=== PATIENT | male | born 1945 | race Caucasian/White ===

== ENCOUNTER 2019-03-05 14:24 | Emergency (ER) | payer MEDICARE, OTHER ==
--- NOTE | 2019-03-05 15:51 | EDM.PDOC ---
ED HPI GENERAL MEDICAL PROBLEM - General Chief Complaint: Upper Extremity Injury/Pain Stated Complaint: FALL/RIGHT ARM PAIN Time Seen by Provider: 03/05/19 15:21 Source of Information: Reports: Patient History Limitations: Reports: No Limitations - History of Present Illness INITIAL COMMENTS - FREE TEXT/NARRATIVE: HISTORY AND PHYSICAL: History of present illness: Patient is a 73-year-old male who presents to the emergency room today with complaints of right shoulder pain after falling from standing height. He denies hitting his head or having any loss of consciousness. Patient has localized pain right at the shoulder joint. Offers no other extremity complaints. He denies any numbness, tingling or saddle paresthesias. Patient is ambulatory without difficulty. Patient denies any fever, chills, headache, change in vision , syncope or near syncope. Denies any chest pain, back pain, shortness of breath or cough. Denies any abdominal pain, nausea, vomiting, diarrhea, constipation or dysuria. Has not noted any blood in urine or stool. Patient has been eating and drinking appropriately. Review of systems: As per history of present illness and below otherwise all systems reviewed and negative. Past medical history: As per history of present illness and as reviewed below otherwise noncontributory. Surgical history: As per history of present illness and as reviewed below otherwise noncontributory. Social history: See social history for further information Family history: As per history of present illness and as reviewed below otherwise noncontributory. Physical exam: General: Well-developed and well-nourished 73-year-old male. Alert and oriented. Nontoxic appearing and in no acute distress. HEENT: Atraumatic, normocephalic, pupils equal and reactive bilaterally, negative for conjunctival pallor or scleral icterus, mucous membranes moist, trachea midline. No drooling or trismus noted. No meningeal signs. No hot potato voice noted. Lungs: Clear to auscultation, breath sounds equal bilaterally, chest nontender. Heart: S1S2, regular rate and rhythm without overt murmur Abdomen: Soft, nondistended, nontender. Negative for masses. Negative for costovertebral tenderness. Pelvis: Stable nontender. Skin: Intact, warm, dry. No lesions or rashes noted. Extremities: Pain with limited ROM of right shoulder, otherwise moves all other extremities per self without difficulty or deficits, strong radial pulses bilaterally. Cap refill less than 3 seconds. Able to grasp tightly. Neurovascular unremarkable. Neuro: Awake, alert, oriented. Cranial nerves II through XII unremarkable. Cerebellum unremarkable. Motor and sensory unremarkable throughout. Exam nonfocal. Notes: X-ray shows a comminuted humeral head fracture as well as a fracture through the surgical neck. Degenerative changes are noted. Sling was applied with education. 1540: Dr Roth, orthopedics on-call, was consulted on this case. He states that he will see this patient tomorrow in clinic and to place the patient in a sling and provide pain medication. This information was shared with the patient. Supportive care measures were reviewed and discussed. Voices understanding and is agreeable to plan of care. Denies any further questions or concerns at this time. Diagnostics: Right shoulder x-ray Therapeutics: Sling Prescription: [place] (#20) Impression: Shoulder fracture, right Plan: 1. Rest, ice, elevate the affected extremity. Please wear the splint as directed. 2. Tylenol and/or Ibuprofen as needed for pain management. [place] for moderate to severe pain. 3. Follow up with the Orthopedic provider tomorrow at the building at 0830. Return to the ED as needed and as discussed. Definitive disposition and diagnosis as appropriate pending reevaluation and review of above. right shoulder area Pain Score (Numeric/FACES): 6 - Related Data Allergies Allergy/AdvReac Type Severity Reaction Status Date / Time No Known Allergies Allergy Verified 03/05/19 15:02 Home Meds: Home Meds Acetaminophen/HYDROcodone [[place] 325-5 MG] 1 dose PO Q4H #20 tablet 03/05/19 [Rx ] Allopurinol [Zyloprim] 300 mg PO DAILY 03/05/19 [History] Aspirin 81 mg PO DAILY 03/05/19 [History] Lisinopril 1 tab PO DAILY PRN 03/05/19 [History] Sotalol HCl [Sotalol] 60 mg PO BID 03/05/19 [History] atorvaSTATin [Lipitor] 20 mg PO DAILY 03/05/19 [History] Past Medical History Cardiovascular History: Reports: High Cholesterol, Hypertension, [place] Musculoskeletal History: Reports: Gout - Past Surgical History Cardiovascular Surgical History: Reports: Coronary Artery Stent Musculoskeletal Surgical History: Reports: Arthroscopic Knee Social & Family History - Family History Family Medical History: Noncontributory - Tobacco Use Smoking Status *Q: Never Smoker - Recreational Drug Use Recreational Drug Use: No Review of Systems - Review of Systems Review Of Systems: Comprehensive ROS is negative, except as noted in HPI. ED EXAM, GENERAL - Physical Exam Exam: See Below (See dictation) Course - Vital Signs Last Recorded V/S: Last Vital Signs Temp 96.1 F 03/05/19 14:59 Pulse 58 L 03/05/19 14:59 Resp 20 03/05/19 14:59 BP 200/98 H 03/05/19 14:59 Pulse Ox 95 03/05/19 14:59 - Orders/Labs/Meds Meds: Medications Discontinued Medications Generic Name Dose Route Start Last Admin Trade Name Freq PRN Reason Stop Dose Admin Hydrocodone Bitart/Acetaminophen 1 tab 03/05/19 15:57 03/05/19 16:19 [place] 325-5 Mg PO 03/05/19 15:58 1 tab ONETIME ONE Administration Departure - Departure Time of Disposition: 15:56 Disposition: Home, Self-Care 01 Clinical Impression: Shoulder fracture, right Qualifiers: Encounter type: initial encounter Fracture type: closed Qualified Code(s): S42.91XA - Fracture of right shoulder girdle, part unspecified, initial encounter for closed fracture - Discharge Information Prescriptions: Acetaminophen/HYDROcodone [[place] 325-5 MG] 1 dose PO Q4H #20 tablet Instructions: Humerus Fracture Treated With Immobilization, [id number] Referrals: Miguel Angel Roth DO [Physician] - 03/06/19 8:30 am (Please arrive 15 min early to fill out paperwork. ) Forms: ED Department Discharge Additional Instructions: The following information is given to patients seen in the emergency department who are being discharged to home. This information is to outline your options for follow-up care. We provide all patients seen in our emergency department with a follow-up referral. The need for follow-up, as well as the timing and circumstances, are variable depending upon the specifics of your emergency department visit. If you don't have a primary care physician on staff, we will provide you with a referral. We always advise you to contact your personal physician following an emergency department visit to inform them of the circumstance of the visit and for follow-up with them and/or the need for any referrals to a consulting specialist. The emergency department will also refer you to a specialist when appropriate. This referral assures that you have the opportunity for follow-up care with a specialist. All of these measure are taken in an effort to provide you with optimal care, which includes your follow-up. Under all circumstances we always encourage you to contact your private physician who remains a resource for coordinating your care. When calling for follow-up care, please make the office aware that this follow-up is from your recent emergency room visit. If for any reason you are refused follow-up, please contact the [facility] at and asked to speak to the emergency department charge nurse. [facility] [address], [address] [place] [address] 1. Rest, ice, elevate the affected extremity. Please wear the splint as directed. 2. Tylenol and/or Ibuprofen as needed for pain management. [place] for moderate to severe pain. 3. Follow up with the Orthopedic provider tomorrow at the [facility] at 0830am. Return to the ED as needed and as discussed.
[2019-03-05] MEDS ORDERED: Acetaminophen/HYDROcodone 325-5 MG Tab PO ONE (15:57)
--- NOTE | 2019-03-05 16:13 | CR ---
EXAM DATE: 03/05/19 PATIENT'S AGE: 73 Right shoulder: Three views of the right shoulder were obtained. Comparison: No prior shoulder study. Comminuted fracture is seen within the humeral head and surgical neck. Greatest fracture displacement by about 9 mm. Joint space narrowing and superior and inferior spurring is noted within the acromioclavicular joint. No other acute abnormality is seen. Impression: 1. Comminuted humeral head fracture as well as fracture within the surgical neck. 2. Degenerative change. Diagnostic code #3 Report Signed by Proxy. [facility]
== END 2019-03-05 16:26 | disposition home or self-care (01) ==
LOC: MW.ED 14:24
DX: S42.211A Unspecified displaced fracture of surgical neck of right humerus, initial encounter for closed fracture (principal); S42.91XA Fracture of right shoulder girdle, part unspecified, initial encounter for closed fracture; I10 Essential (primary) hypertension; E78.00 Pure hypercholesterolemia, unspecified; I25.2 Old myocardial infarction; Z88.8 Allergy status to other drugs, medicaments and biological substances; Z79.82 Long term (current) use of aspirin; Z79.899 Other long term (current) drug therapy; W19.XXXA Unspecified fall, initial encounter
CPT/HCPCS: 73030; 99283; A9270; 99284